=== PATIENT | male | born 1945 | race Caucasian/White ===

== ENCOUNTER 2016-08-25 10:36 | Day surgery (SDC) | payer MEDICARE, OTHER ==
[~2016-08-25] VITALS: Ht 188 cm; Wt 107.0 kg
[~2016-08-25 10:36] MED LIST: Albuterol-Ipratropium 3 mL Inhalation Solution NEB PRN; FLUT1DIS5 IH; IPRA3AMP IH; MULT-1018 PO
[2016-08-25] MEDS ORDERED: Propofol 10,000 mCg/mL 20 mL Inj ONE (10:37)
[2016-08-25] MEDS ORDERED: fentaNYL-PF 50 mCg/mL 2 mL Inj ONE (10:37)
[2016-08-25] MEDS ORDERED: Lidocaine PF 1% 30 mL Inj ONE (10:37)
[2016-08-25 11:03] VITALS: BP 126/85; PULSE 97; RESP 22; O2SAT 92
[2016-08-25] MEDS: Lactated Ringer's 1,000 ML IV SCH ×2 (11:08→12:52)
[2016-08-25] MEDS ORDERED: Lactated Ringer's 500 ML IV PRN (12:33)
[2016-08-25] MEDS ORDERED: Lactated Ringer's 1,000 ML IV SCH (12:33)
--- NOTE | 2016-08-25 12:33 | PCM.HPANE ---
Patient Data Date of Service: Aug 25, 2016 Surgeon Admitting Provider: Attending Provider:Binh Gan DPM Primary Care Physician:Osmany Shah MD Other Provider:Felipe Sim Anesthesia Reason for Visit Left Foot Tailor Bunion Ht/WT & BMI Height (Feet): 6 Height (Inches): 2 Weight (Kilograms): 107.04 Body Mass Index 30.00 Allergies Coded Allergies: No Known Allergies (Unverified Allergy, 08/23/12) Past Anesthesia History Anesthesia History: Denies:: Abnormal Airway, Anesthesia Reactions, Difficult Intubation, Fam Anesthesia Reaction Diabetes History Hx Diabetes?: No MRSA MRSA: No Medications Blood Thinner: Aspirin Hypertension Medication: No Home Meds Incl Beta Sherif: No Reported Medications Ipratropium/Albuterol Sulfate (Iprat-Albut 0.5-3(2.5) mg/3 mL Inhalant Soln)3 Ml Ampul.neb3 Ml IH Q6 Ref 0 08/22/16 Multivitamin (Multi Vitamin Daily)1 Each Tablet1 Each PO DAILY 30 Days Ref 0 08/22/16 Fluticasone/Salmeterol (Advair 500-50 Diskus)1 Each Disk.w.dev1 Puff IH BID #1 DISK Ref 0 08/22/16 Discontinued Reported Medications Albuterol Sulfate/Ipratropium (Duoneb 2.5-0.5MG/3ML Soln)3 Ml Nebu3 Ml HHN PRN 08/23/12 Albuterol-Expunged Drug, Do Not Renew! (ProAir HFA-Expunged Drug, Do Not Renew!) 200 Puff/8.5 Gm Hfa.aer.ad8.5 Gm INH PRN 08/23/12 Flutic/Salmet-Expunged Drug, Do Not Renew! (Advair 100/50-Expunged Drug, Do Not Renew!)100 Mcg Puff1 Puff INH PRN RINSE MOUTH AFTER USE 08/19/12 Doxazosin-Expunged Drug, Do Not Renew! 8 Mg Tablet0.5 Tab PO HS 08/19/12 Doxazosin-Expunged Drug, Do Not Renew! 8 Mg Tablet8 Mg PO AM 08/19/12 History History of ENT Problems?: No HEENT History: Positive for:: Cataracts (thinks only left eye) Hearing Problem (50% hearing loss, Meniere's disease) Denies:: Abnormal Airway Difficult Intubation Dysphagia Glaucoma Sinus Problem TMJ Denture Type: Full- Upper Full- Lower Hx of Heart Problems?: No Cardiovascular History: Denies:: AICD Abdominal Aortic Aneurism Atrial Fibrillation Edema Heart Murmur Hypertension Irregular Heartbeat Pacemaker Peripheral Vascular Hx of Respiratory Problem?: Yes Respiratory History: Positive for:: Asthma COPD (FEV1 28%) Dyspnea (can walk about 100 yards, 1/2 flight stairs) Use of Inhalers / NEBS Denies:: Oxygen Administration (no supplement O2 ) Pneumonia Tuberculosis Use of C-PAP Machine Hx Neurologic Problems?: No Neurological History: Denies:: CVA Dementia Dizziness Headaches Multiple Sclerosis Parkinson's Disease Seizures TIA Hx of GI Problems?: No Gastrointestinal History: Denies:: Cirrhosis Diverticulitis Gall Bladder Disease Gastroesphageal Reflux Gastrointestinal Bleeding Heartburn Hepatitis Hiatal Hernia Liver Disease Hx of Problems?: No Genitourinary History: Denies:: Kidney Stones Urinary Tract Infection Male Hx: Positive for:: Prostate Problems (bph, turp hx ) Skin History: Denies:: History Skin Disorders? 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 Denies:: Blood Transfusions Hx Diabetes: No Hx Alcohol Use: NoHx Substance Use: No (remote hx of)Have You Smoked inLast 12 mo: No Stop/Bang S-Snoring: Do You Snore Loudly: No T-Tired: feel tired, fatigued: No O-Obsered: Observed not breath: No P-Blood Pressure: treated: No B- Body Mass Index > 35 kg/m2: No A- Age over 50: Yes N- Neck Large Circumference: No G- Gender Male: Yes ALEK Total Score: 2 ALEK Risk Assessment: Low Risk, <3 Yes Risk Assessment Category Category 1A: Patient has history of documented sleep apnea, and HAS NOT received any narcotic, sedative or anesthesia administration during this stay. Category 1B: Patient has history of documented sleep apnea, and HAS received any narcotic , sedative or anesthesia administration during this stay Category 2: Patient has SUSPECTED Obstructive Sleep Apnea, and HAS received any narcotic , sedative or anesthesia administration during this stay. Category 3: Patient has SUSPECTED Obstructive Sleep Apnea and HAS NOT received narcotic, sedative or anesthesia administration during this stay. Category 4: Outpatient in Procedural Areas with known sleep apnea or who screen positive for High Risk via the STOP/BANG questionnaire. Exam Exam Vital Signs Vital Signs Date Time Temp Pulse Resp B/P Pulse Ox O2 Delivery O2 Flow Rate FiO2 08/25/16 11:03 36.1 97 22 126/85 92 Room Air General Appearance: Alert, Oriented X3, Cooperative HEENT/AIRWAY: MP 2, Neck Movement (OK), Mouth Opening (Upper & Lower dentures) Lungs: Diminished Heart: Regular Rate/Rhythm, Normal S1, Normal S2 Meds/Labs/Diagnostics Admission Meds Current Medications Lactated Ringer's (Lr) 1,000 ml @ 120 mls/hr Q8H20M IV Last administered on t 11:08; Start 08/25/16 at 05:00; Stop 08/25/16 at 13:19 Plan Impression Patient chart reviewed, patient interviewed and anesthestic plan with risks, benefits, and alternatives discussed, and informed consent obtained. NPO Status: 08/24 2299 ASA Physical Status: ASA3 Severe Disease Anesthetic Plan: MAC Bene/Risks/Altern/Consents: Yes HP Complete Prior to Induction: Yes Gregorio Pierre MD Aug 25, 2016 12:33
[2016-08-25] MEDS ORDERED: Atropine 0.4 mg/mL Inj IVPUSH PRN (12:35)
[2016-08-25] MEDS ORDERED: EPHEDrine Sulfate 50 mg/mL Inj IVPUSH PRN (12:35)
[2016-08-25] MEDS ORDERED: Dexamethasone 4 mg/mL Inj IVPUSH PRN (12:35)
[2016-08-25] MEDS ORDERED: Labetalol 5 mg/mL 4 mL Inj IV PRN (12:35)
[2016-08-25] MEDS ORDERED: fentaNYL-PF 50 mCg/mL 2 mL Inj IVPUSH PRN (12:35)
[2016-08-25] MEDS ORDERED: Ondansetron 2 mg/mL 2 mL Inj IVPUSH PRN (12:35)
[2016-08-25] MEDS ORDERED: MetoCLOpramide 5 mg/mL 2 mL Inj IVPUSH PRN (12:35)
[2016-08-25] MEDS ORDERED: hydrALAZINE 20 mg/mL Inj IVPUSH PRN (12:35)
[2016-08-25] MEDS ORDERED: Phenylephrine 10,000 mCg/mL Inj IVPUSH PRN (12:35)
[2016-08-25] MEDS ORDERED: HYDROmorphone 1 mg/mL Inj IVPUSH PRN (12:35)
[2016-08-25] MEDS ORDERED: CeFAZolin Inj 2 gm / 50mL D5W IV ONE (12:44)
[2016-08-25] MEDS ORDERED: Bupivacaine-MPF 0.5% 30 mL Inj INFILTRATE ONE (12:52)
[2016-08-25] MEDS ORDERED: Lidocaine PF 1% 30 mL Inj INFILTRATE ONE (12:52)
[2016-08-25] MEDS ORDERED: Dexamethasone 4 mg/mL Inj INTRARTICU ONE (13:31)
--- NOTE | 2016-08-25 13:44 | PCM.ANEP1 ---
Post Anesthesia Phase 1 PACU Phase 1 Assessment Date of Service: Aug 25, 2016 Vital Signs Phase II HR 98, RR 16, BP 136/69, O2 92% RA, T 36.4 Vital Signs Date Time Temp Pulse Resp B/P Pulse Ox O2 Delivery O2 Flow Rate FiO2 08/25/16 11:03 36.1 97 22 126/85 92 Room Air Anesthetic Administered: MAC Level of Alertness: Awake, talking CLEMENTE's with Equal Strength: Yes Pain: No Nausea or Vomiting: No Oxygen Delivery: Room Air Lungs: Diminished Gregorio Pierre MD Aug 25, 2016 13:43
--- NOTE | 2016-08-25 13:45 | PCM.ANEP2 ---
Post Anesthesia Evaluation ASA/CMS Post Anesthesia Date of Service: Aug 25, 2016 VS in Patient's Normal Range?: Yes Resp Stable; Airway Patent?: Yes CV Function & Hydration Stable: Yes Mental Status Recovered?: Yes Pain control Satisfactory?: Yes N/V Control Satisfactory?: Yes Gregorio Pierre MD Aug 25, 2016 13:45
--- NOTE | 2016-08-25 13:49 | PCM.SURGPO ---
Immediate Operative Note Date of Surgery: Aug 25, 2016 Pre Operative Diagnosis TAILOR BUNION LEFT FOOT Post Operative Diagnosis Tailor bunion left foot Procedure Exostectomy 5th metatarsal left foot Surgeon and [employer] Analyst Surgeon: Binh Gan DPM Assistants: None Findings Exostosis Complications There were no periprocedural complications identified. Surgical Specimen Removed: No Specimen sent to Pathology: No Anesthetic Administered: MAC Grafts, Implants: None Output, Estimated Blood Loss: 1 Blood Admin during surgery: No Binh Gan DPM Aug 25, 2016 13:49
[2016-08-25 13:50] VITALS: BP 136/69; PULSE 96; RESP 18; O2SAT 92
--- NOTE | 2016-08-25 14:22 | OP ---
[address] [address] OPERATIVE REPORT PATIENT: LITTLE GUILLORY : 1945 MR#: [id number] ADMIT: 08/25/2016 JOB ID: [id number] DATE OF SURGERY: 08/25/2016 SURGEON: Binh Gan DPM. PREOPERATIVE DIAGNOSIS(ES): Tailor bunion, left foot. POSTOPERATIVE DIAGNOSIS(ES): Tailor bunion, left foot. SPECIFIC OPERATION PERFORMED: Exostectomy, 5th metatarsal, left foot. ANESTHESIA: Local plus IV sedation. HEMOSTASIS: Esmarch bandage at the ankle x25 minutes. ESTIMATED BLOOD LOSS: Minimal. INDICATIONS: The patient has had a painful tailor bunion on the left foot. After failure of conservative care consisting of alteration in shoes and padding, and consideration of risks and benefits, the patient desires to have surgical correction. SURGERY: The patient was brought to the operating room and placed on the operating table in the supine position. IV sedation administered. Following administration of IV sedation, 20 cc of a 1:1 mixture of 1% Xylocaine plain with 0.5% Marcaine with epinephrine was infiltrated about the posterior tibial nerve and the dorsal lateral aspect of the left foot. Left foot was then prepped and draped in usual aseptic manner. Anesthesia was tested and found to be adequate. Esmarch bandage was applied from toes to heel with it being tightened at the ankle for hemostasis. The distal foot was exposed. Attention was directed to the distal left foot, where a 5 cm incision was made over the 5th metatarsophalangeal joint. This skin incision was deepened via sharp and blunt dissection, with superficial vessels being ligated as needed. Vital structures were identified and retracted. Dissection was carried out exposing the 5th metatarsophalangeal joint capsule. Blunt dissection was then carried out exposing the dorsal and lateral aspects of the 5th metatarsophalangeal joint. The capsule and periosteum were then sharply incised and reflected, exposing the head of the 5th metatarsal. There was noted to be a very large exostosis on the lateral aspect of the 5th metatarsal head. A sagittal saw was then utilized to perform exostectomy of the lateral 5th metatarsal head. The foot was then palpated, and there was felt to be adequate bony resection. The site was then lavaged. The periosteum and capsule were then repaired with 4-0 Vicryl. Deep tissues were approximated with 4-0 Vicryl. Skin closed with 4-0 Prolene. Tincture of benzoin and Steri-Strips were applied across the skin incision. Then, 4 mg dexamethasone was infiltrated for postoperative analgesia. A dry sterile compressive dressing was then applied to the foot and the Esmarch bandage removed from the ankle. There was an immediate return of color to all digits. The patient was then taken from the operating room to day surgery with vital signs stable, capillary refilling time within normal limits in all digits, with no apparent complications with surgery or anesthesia.
[2016-08-25 15:13] VITALS: BP 132/63; PULSE 85; RESP 18; O2SAT 92
== END 2016-08-25 23:59 | disposition home or self-care (01) ==
LOC: SAS 10:36
PROVIDERS: ATTEND Podiatrist
PROC: 0QBR0ZZ Excision of Left Toe Phalanx, Open Approach (ICD-10-PCS; principal; 2016-08-25 12:15)
DX: M21.622 Bunionette of left foot (principal); J44.9 Chronic obstructive pulmonary disease, unspecified; J45.909 Unspecified asthma, uncomplicated; Z87.891 Personal history of nicotine dependence
CPT/HCPCS: 28110; J0690; J1100; J2250; J3010; J7120